=== PATIENT | female | born 1995 | race Caucasian/White ===

== ENCOUNTER 2021-09-30 12:59 | Outpatient (REF) | payer OTHER, SELFPAY ==
--- NOTE | ~2021-09-30 | US_ITS ---
EXAMINATION: US DIAGNOSTIC ULTRASOUND BREAST, LEFT CLINICAL INFORMATION: Left breast discoloration which slightly raised area for 3 months. COMPARISON: None. TECHNIQUE: Ultrasound of the breast is performed with real-time sanchez scale imaging and color Doppler. FINDINGS: There is no focal suspicious finding. There is no solid mass, architectural abnormality, duct ectasia, or edema in the soft tissue planes. Results are discussed with the patient at time of visit. US/US breast LT limited IMPRESSION: No ultrasound abnormality seen about the region of pigment change of the left breast. Clinical follow-up suggested. ASSESSMENT: BI-RADS 1: Negative RECOMMENDATION: Screening mammography at age 41. Clinical follow-up. This patient's information was entered into a reminder system with a target due date for their next mammogram.
== END 2021-09-30 13:00 | disposition home or self-care (01) ==
LOC: HO.MAMMO 12:59
PROVIDERS: PCP Nurse Practitioner Family; Visit Provider Nurse Practitioner Family
DX: L98.9 Disorder of the skin and subcutaneous tissue, unspecified (principal)
CPT/HCPCS: 76642